=== PATIENT | female | born 1985 | race Caucasian/White ===

== ENCOUNTER → 2016-11-03 | Outpatient (REF) | payer OTHER | LOC: M SFHCLERA 09:45 | PROVIDERS: ATTEND Family Medicine | DX: Z78.9 Other specified health status (principal); Z23 Encounter for immunization; Z11.1 Encounter for screening for respiratory tuberculosis ==

== ENCOUNTER → 2017-06-30 | Outpatient (REF) | payer OTHER | LOC: M SFHCLERA 14:57 | PROVIDERS: ATTEND Family Medicine | DX: N39.0 Urinary tract infection, site not specified (principal); Z11.1 Encounter for screening for respiratory tuberculosis ==

== ENCOUNTER → 2017-07-12 | Outpatient (CLI) | payer OTHER ==
--- NOTE | 2017-07-12 17:48 | REP ---
Pelvic sonography: History: Enlarged right-sided uterus. Pelvic pain. Findings: Transabdominal and transvaginal scanning are performed. Uterus is somewhat enlarged with overall dimensions of 10.5 x 4.3 x 7.7 cm. The endometrial echo is 1.2 cm thick. There is a posterior fibroid, which is small measuring 1.6 x 1.2 x 1.4 cm. A second posterior fibroid is suspected measuring 3.6 x 3.7 x 2.7 cm. The ovaries are bilaterally somewhat enlarged and multicystic. Right ovarian dimensions are 5.6 x 4.2 x 4.7 cm. There are two complex cysts in the right ovary. Anteriorly, a complex cyst is seen measuring 4.0 x 1.5 x 3.5 cm. More posteriorly, there is a complex cyst measuring 4.0 x 4.2 x 3.3 cm. The overall dimensions of the left ovary are 6.5 x 6.1 x 5.6 cm. There is a complex cystic area in the left ovary measuring 5.2 x 5.3 x 4.6. Impression: Complex cystic enlargement bilateral ovaries. Two suspected uterine fibroids. Consider pelvic MRI scanning. Signed by Corey England MD 07/12/2017 08:31 P
== END ==
LOC: M LRY 11:27
PROVIDERS: ATTEND Family Medicine
DX: R10.2 Pelvic and perineal pain (principal)

== ENCOUNTER → 2017-07-12 | Outpatient (REF) | payer OTHER ==
[2017-07-12 19:23] LABS: ALBUMIN 3.9 GM/DL (3.2-5.2); ALBUMIN/GLOBULIN RATIO 1.05 (1.00-1.93); ALKALINE PHOSPHATASE 61 U/L (45-117); ALT/SGPT 29 U/L (12-78); ANION GAP 7 MEQ/L (8-16); AST/SGOT 19 U/L (7-37); BILIRUBIN,TOTAL 0.3 MG/DL (0.2-1.0); BLOOD UREA NITROGEN 12 MG/DL (7-18); CALCIUM LEVEL 9.1 MG/DL (8.5-10.1); CARBON DIOXIDE LEVEL 28 MEQ/L (21-32); CHLORIDE LEVEL 105 MEQ/L (98-107); CREATININE FOR GFR 0.66 MG/DL (0.55-1.02); GLOMERULAR FILTRATION RATE > 60.0 (>60); GLUCOSE, FASTING 81 MG/DL (70-105); POTASSIUM SERUM 4.4 MEQ/L (3.5-5.1); SODIUM LEVEL 140 MEQ/L (136-145); TOTAL PROTEIN 7.6 GM/DL (6.4-8.2)
[2017-07-12 19:33] LABS: BASO # 0.1 10^3/uL (0.0-0.2); BASO % 0.5 % (0.0-1.0); EOS # 0.1 10^3/uL (0.0-0.50); EOS % 0.8 % (0.0-3.0); IMMATURE GRANULOCYTE % 0.3 % (0-0); LYMPH # 2.4 10^3/uL (1.5-4.5); LYMPH % 24.4 % (24.0-44.0); MEAN CORPUSCULAR HEMOGLOBIN 30.3 pg (27.0-33.0); MEAN CORPUSCULAR HGB CONC 32.7 g/dl (32.0-36.5); MEAN CORPUSCULAR VOLUME 92.8 fl (80.0-96.0); MONO # 0.4 10^3/uL (0.0-0.8); MONO % 4.4 % (0.0-5.0); NEUTROPHILS # 6.9 10^3/uL (1.8-7.7); NEUTROPHILS % 69.6 % (36.0-66.0); PLATELET COUNT, AUTOMATED 338 10^3/uL (150-450); RED CELL DISTRIBUTION WIDTH 13.3 % (11.5-14.5)
== END ==
LOC: M SFHCLERA 11:07
PROVIDERS: ATTEND Family Medicine
DX: R30.0 Dysuria (principal); R10.9 Unspecified abdominal pain

== ENCOUNTER → 2017-07-20 | Outpatient (CLI) | payer OTHER ==
[~2017-07-20] MED LIST: PROHANCE 279.3MG/ML 15ML VIAL (A9576) As Ordered ONE; PROHANCE 279.3MG/ML 5ML VIAL (A9576) As Ordered ONE
--- NOTE | 2017-07-20 18:08 | REP ---
MRI PELVIS WITHOUT AND WITH CONTRAST: 07/20/2017. Comparison: CT abdomen pelvis 07/14/2017, pelvic ultrasound 07/12/2017 at [facility]. Clinical history: Multiple uterine masses and bilateral complex ovarian cyst on CT and ultrasound last week. Technique: Axial T1, coronal T2 and fat suppressed T1 angled to the plane of the uterus with sagittal T2 and fat suppressed T2 sequences followed by infusion of 20 ml as ProHance with T1 fat suppressed axial and coronal images provided. Diffusion-weighted images were also obtained in axial projection. Findings. Uterus is anteverted. Endometrial stripe is not abnormally thickened. There are body and posterior fundal fibroids evident in the myometrium as well as a subserosal fibroid and pedunculated fibroid off the posterior lateral left aspect the uterine body and fundus. There is pedunculated fibroid is 3.7 x 3.1 x 3.3 cm. Smaller fibroids are hypointense to the myometrium. The larger pedunculated fibroid appears to be isointense to adjacent myometrium and serosa. Tiny Nabothian cyst is seen. Free fluid in the cul-de-sac. Left ovary shows a complex lobulated cyst or complex cystic mass 5.2 x 5.3 x 4.1 cm. There are small nodular excrescence is from the wall into the lumen of the cyst and thickened wall. Adjacent to it and abutting the pedunculated fibroid is another predominant cystic component 3.7 x 2.1 x 2.4 cm. She also has a small nodule inferiorly whether this is arising from the left ovary or the right is uncertain and abuts both. The complex right adnexal mass is at least 5.1 x 2.5 and has a enhancing rim and on T2 to area of hyperintensity and some hypo intensity within the complex mass which is predominantly hypointense on the fat suppressed T1 and does not enhance. This suggests hemorrhagic component within it and may reflect a hemorrhagic cyst or endometrioma. I do not see other adnexal masses. No pelvic free fluid. No pelvic lymphadenopathy visible. Visualized marrow was unremarkable. No inguinal mass or adenopathy. Impression: 1. Uterus enlarged somewhat globular with intramural fibroids which are hypointense signal compared to normal myometrium and pedunculated fibroid posteriorly off the body and fundus towards the left as described. It sits between the right and left complex ovarian cystic masses. These have a thickened enhancing zimmerman and some lobulated contours. On the right there is a pattern suggesting endometrioma or hemorrhagic cyst. Only small nodular components with a thickened wall. Differential considerations would be complex cysts, endometriomas or cystic neoplasm. If not already obtained, [employer] consult necessary for this. Signed by Maxim Chappell MD 07/20/2017 08:39 P
== END ==
LOC: M RAD 12:19
PROVIDERS: ATTEND Family Medicine
DX: R19.00 Intra-abdominal and pelvic swelling, mass and lump, unspecified site (principal)

== ENCOUNTER 2018-06-24 12:01 | Emergency (ER) | payer OTHER ==
[2018-06-24] MEDS: ASPIRIN 81 MG CHEW TABLET PO (13:00)
[2018-06-24 13:48] LABS: ABG BASE EXCESS -2.8 (-2.0-2.0); ABG HCO3 19.7 MEQ/L (22.0-26.0); ABG O2 SATURATION 98.3 % (95.0-99.0); ABG PARTIAL PRESSURE CO2 28.4 mmHg (35.0-45.0); ABG PARTIAL PRESSURE O2 107.7 mmHg (75.0-100.0); ABG STANDARD HCO3 22.2 MEQ/L (22.0-26.0); ABG TOTAL CO2 20.6 MEQ/L (22.0-29.0)
[2018-06-24 13:55] LABS: BASO # 0.1 10^3/uL (0.0-0.2); BASO % 0.6 % (0.0-1.0); EOS # 0.1 10^3/uL (0.0-0.50); EOS % 1.4 % (0.0-3.0); HEMATOCRIT 38.6 % (36.0-47.0); HEMOGLOBIN 13.2 g/dl (12.0-15.5); IMMATURE GRANULOCYTE % 0.2 % (0-3.0); LYMPH # 2.5 10^3/uL (1.5-4.5); LYMPH % 25.8 % (24.0-44.0); MEAN CORPUSCULAR HEMOGLOBIN 32.2 pg (27.0-33.0); MEAN CORPUSCULAR HGB CONC 34.2 g/dl (32.0-36.5); MEAN CORPUSCULAR VOLUME 94.1 fl (80.0-96.0); MONO # 0.7 10^3/uL (0.0-0.8); MONO % 6.9 % (0.0-5.0); NEUTROPHILS # 6.4 10^3/uL (1.8-7.7); NEUTROPHILS % 65.1 % (36.0-66.0); PLATELET COUNT, AUTOMATED 272 10^3/uL (150-450); RED CELL DISTRIBUTION WIDTH 12.2 % (11.5-14.5); WHITE BLOOD COUNT 9.8 10^3/uL (4.0-10.0)
[2018-06-24 14:56] LABS: INR 1.12; PROTHROMBIN TIME 14.6 SECONDS (12.1-14.4)
[2018-06-24 14:57] LABS: PARTIAL THROMBOPLASTIN TIME 32.9 SECONDS (25.4-37.6)
[2018-06-24 15:53] LABS: ANION GAP 6 MEQ/L (8-16); BLOOD UREA NITROGEN 7 MG/DL (7-18); CALCIUM LEVEL 9.2 MG/DL (8.5-10.1); CARBON DIOXIDE LEVEL 26 MEQ/L (21-32); CHLORIDE LEVEL 107 MEQ/L (98-107); CREATININE FOR GFR 0.79 MG/DL (0.55-1.30); GLOMERULAR FILTRATION RATE > 60.0 (>60); GLUCOSE, FASTING 86 MG/DL (70-100); SODIUM LEVEL 139 MEQ/L (136-145)
[2018-06-24 15:54] LABS: CK-MB VALUE MASS < 1.0 NG/ML (<3.6); CPK CREATINE PHOSPHOKINASE 71 U/L (26-192); TROPONIN I < 0.02 NG/ML (< 0.10)
== END 2018-06-24 17:26 | disposition home or self-care (01) ==
LOC: M ED 12:01
DX: R06.02 Shortness of breath (principal); Z87.891 Personal history of nicotine dependence; Z79.899 Other long term (current) drug therapy; Z79.01 Long term (current) use of anticoagulants
CPT/HCPCS: 93970

== ENCOUNTER → 2018-06-27 | Outpatient (CLI) | payer OTHER | LOC: M LRY 13:48 | DX: R91.8 Other nonspecific abnormal finding of lung field (principal); R06.02 Shortness of breath | CPT/HCPCS: 71046; G0463 ==

== ENCOUNTER → 2018-07-05 | Outpatient (CLI) | payer OTHER | LOC: M LRY 10:10 | DX: J18.1 Lobar pneumonia, unspecified organism (principal) | CPT/HCPCS: 71046 ==